=== PATIENT | female | born 1985 | race Hispanic/Latino ===

== ENCOUNTER 2017-11-11 09:31 | Emergency (ER) | payer SELFPAY ==
[~2017-11-11] VITALS: Ht 154.9 cm; Wt 75.0 kg
[~2017-11-11 09:31] MED LIST: CIPROFLOXACN500 MG PO; IBUPROFEN600 MG PO; MACRODANTIN100 MG OR; NO HOME MEDS; PYRIDIUM200 MG PO
[2017-11-11 10:16] LABS: HEMATOCRIT 31.4 % (37.0-47.0); HEMOGLOBIN 9.8 g/dl (12.0-16.0); IMMATURE GRANULOCYTES 0.4 % (0.0-1.0); MEAN CELL VOLUME 78.7 fL CALC (80.0-100.0); MEAN CORPUSCULAR HGB 24.6 pG CALC (26.0-32.0); MEAN CORPUSCULAR HGB CONC 31.2 g/L CALC (32.0-36.0); NEUT# 8.42 thou/uL (2.00-7.15); RED BLOOD COUNT 3.99 mill/uL (4.20-5.60); RED CELL DISTRI WIDTH 17.3 % (11.5-15.5)
[2017-11-11 10:55] VITALS: BP 134/77
[2017-11-11] MEDS ORDERED: BIAXIN500 MG PO (10:55)
== END 2017-11-11 11:00 | disposition home or self-care (01) | DRG 203 ==
LOC: ED 09:31
PROVIDERS: Family Medicine
DX: J20.9 Acute bronchitis, unspecified (principal); R05 Cough; R09.81 Nasal congestion